=== PATIENT | female | born 1950 | race Hispanic/Latino ===

== ENCOUNTER 2016-08-24 16:11 | Emergency (ER) | payer MEDICARE ==
--- NOTE | 2016-08-24 16:28 | C.PDOC ---
History Of Present Illness 66-year-old female, presents to the emergency department with complaints of feeling "stressed out" at home; Patient states that her mother is "driving me crazy." Patient denies any complaints of depression. States she is feeling under appreciated. Patient denies SI/HI Time Seen by Provider: 08/24/16 16:25 Chief Complaint (Nursing): Psychiatric Evaluation History Per: Patient History/Exam Limitations: no limitations Past Medical History Reviewed: Historical Data, Nursing Documentation, Vital Signs Vital Signs: Last Vital Signs Temp 98.1 F 08/24/16 16:15 Pulse 85 08/24/16 16:15 Resp 18 08/24/16 16:15 BP 158/88 H 08/24/16 16:15 Pulse Ox 94 L 08/24/16 17:25 - Medical History PMH: Hypercholesterolemia Family History: States: No Known Family Hx - Social History Hx Alcohol Use: Yes Hx Substance Use: No - Immunization History Hx Tetanus Toxoid Vaccination: No Hx Influenza Vaccination: Yes Hx Pneumococcal Vaccination: No Review Of Systems Except As Marked, All Systems Reviewed And Found Negative. Constitutional: Negative for: Fever, Chills Respiratory: Negative for: Shortness of Breath Gastrointestinal: Negative for: Vomiting Musculoskeletal: Negative for: Back Pain Psych: Negative for: Depression Physical Exam - Physical Exam Appears: Non-toxic, No Acute Distress Skin: Warm, Dry, No Rash Head: Atraumatic Eye(s): bilateral: Normal Inspection Oral Mucosa: Moist Lips: Normal Appearing Neck: Normal ROM Cardiovascular: Rhythm Regular Respiratory: Normal Breath Sounds, No Accessory Muscle Use Extremity: Normal ROM ED Course And Treatment O2 Sat by Pulse Oximetry: 94 Medical Decision Making Medical Decision Making: pt given outpt f/u by crisis. Disposition - Disposition Disposition: HOME/ ROUTINE Disposition Time: 17:52 Condition: STABLE Additional Instructions: follow up as instructed by laundromat worker. Instructions: Anxiety (ED) - Clinical Impression Clinical Impression: Feeling stressed out - Scribe Statement The provider has reviewed the documentation as recorded by the Gibson Rivas All medical record entries made by the Scribe were at my direction and personally dictated by me. I have reviewed the chart and agree that the record accurately reflects my personal performance of the history, physical exam, medical decision making, and the department course for this patient. I have also personally directed, reviewed, and agree with the discharge instructions and disposition.
[2016-08-24 17:55] VITALS: BP 151/82; PULSE 76; RESP 16; TEMP 98.2
[2016-08-24 18:08] VITALS: O2SAT 94
== END 2016-08-24 17:55 | disposition home or self-care (01) ==
LOC: C.ER 16:11
DX: F43.9 Reaction to severe stress, unspecified (principal); E78.00 Pure hypercholesterolemia, unspecified

== ENCOUNTER 2016-11-15 10:12 | Day surgery (SDC) | payer MEDICARE, OTHER ==
[2016-11-04 08:23] VITALS: BMI 22.3
[2016-11-15] MEDS ORDERED: Propofol 10 mg/ml Inj (20 ML) ONE (13:04)
[2016-11-15] MEDS ORDERED: Midazolam 2 MG/2 ML VIAL ONE (13:04)
[2016-11-15] MEDS ORDERED: Lactated Ringer's 1,000 ML IV ONE (13:10)
--- NOTE | 2016-11-15 13:37 | PCM.SURG1 ---
Surgeon's Initial Post Op Note - Surgeon's Notes Surgeon: Dr. Nieves Machinery Engineer: None Type of Anesthesia: General LMA Anesthesia Administered By: Dr. Carcamo Pre-Operative Diagnosis: 66 yo Postmenopausal Thickened endometrium Operative Findings: Stenotic Os Post-Operative Diagnosis: Same as above Operation Performed: Fractional D and C Specimen/Specimens Removed: EMC,ECC Estimated Blood Loss: EBL {In ML}: 10 Blood Products Given: N/A Drains Used: No Drains Post-Op Condition: Good Date of Surgery/Procedure: 11/15/16 Time of Surgery/Procedure: 13:37
[2016-11-15 14:02] VITALS: O2SAT 100
[2016-11-15 15:37] VITALS: BP 129/62; PULSE 60; RESP 12; TEMP 98.2
--- NOTE | 2016-11-16 14:17 | OP ---
PROCEDURE DATE: 11/15/2016 PREOPERATIVE DIAGNOSIS: A 66-year-old female postmenopausal with thickened endometrium. POSTOPERATIVE DIAGNOSIS: A 66-year-old female postmenopausal with thickened endometrium. PROCEDURE: Fractional dilatation and curettage, attempted hysteroscopy, MyoSure. SURGEON: Jennifer Nieves MD ANESTHESIA ADMINISTERED BY: Sim Richter MD TYPE OF ANESTHESIA: General LMA. FINDINGS: Anteverted uterus noted to have a very stenotic os. Due to the stenotic os, the hysteroscopy was not able to be performed and it was proceeded to do a fractional D and C. COMPLICATIONS: None. ESTIMATED BLOOD LOSS: 10 mL. IV FLUID INTAKE: 300 mL. URINE OUTPUT: 0 mL. SPECIMENS: EMC and ECC. DESCRIPTION OF PROCEDURE: The patient was informed of the risk factors, benefits, and alternatives of the procedure. Risk factors included infection, bleeding, damage to the surrounding organs and tissues, complication from anesthesia, and possible . After informed consent was obtained, she was then taken to the operating room, prepped and draped in normal sterile fashion, placed in the dorsal lithotomy position. A weighted-speculum was placed into the vagina. The anterior lip of the cervix was grasped with single-tooth tenaculum. Uterus was gently sounded to approximately 10 cm. Upon complete uterine dilation, it was noted that she was extremely stenotic. A full dilation was not able to be proceeded. So then, just a fractional D and C was performed and double zero curetting was utilized for the endometrial lining. In that particular instance, EMC and ECC was performed and submitted to the pathology. Excellent hemostasis was noted. Upon completion, all instruments were removed from the vagina. Instrument and sponge counts were correct x2. The patient was then taken to recovery in stable condition and instructed to follow up in the office in approximately 2 weeks. Jennifer Nieves MD
== END 2016-11-15 17:15 | disposition home or self-care (01) ==
LOC: C.SDS 10:12
PROVIDERS: ATTEND Obstetrics & Gynecology
DX: N95.0 Postmenopausal bleeding (principal)
CPT/HCPCS: 58120; 88305; J1885; J2250; J2405; J2704; J3010; J7120

== ENCOUNTER 2017-10-21 13:16 | Emergency (ER) | payer MEDICARE ==
[2017-10-21 13:16] VITALS: BMI 22.3
[2017-10-21 13:35] VITALS: TEMP 98
[2017-10-21 14:46] LABS: SQUAMOUS EPITHIAL 1 /hpf (0-5); URINE BILIRUBIN NEGATIVE (NEGATIVE); URINE BLOOD NEGATIVE (NEGATIVE); URINE CLARITY Clear (Clear); URINE COLOR Yellow (YELLOW); URINE GLUCOSE (UA) NORMAL (Normal); URINE LEUKOCYTE ESTERASE NEG Leu/uL (Negative); URINE PROTEIN 1+ mg/dL (NEGATIVE); URINE UROBILINOGEN NORMAL mg/dL (0.2-1.0)
--- NOTE | 2017-10-21 14:46 | C.PDOC ---
History Of Present Illness 67yo female, presents to the emergency department with complaints of two week history of dysuria. Patient has not taken any medication to help relieve symptoms. She denies any fever, chills, back pain, nausea/vomiting, hematuria, or any other associated symptoms. no other complaints at this time. Time Seen by Provider: 10/21/17 13:40 Chief Complaint (Nursing): Female Genitourinary History Per: Patient History/Exam Limitations: no limitations Onset/Duration Of Symptoms: Days Current Symptoms Are (Timing): Still Present Severity: Moderate Past Medical History Reviewed: Historical Data, Nursing Documentation, Vital Signs Vital Signs: Last Vital Signs Temp 98.0 F 10/21/17 13:33 Pulse 77 10/21/17 15:07 Resp 16 10/21/17 15:07 BP 110/68 10/21/17 15:07 Pulse Ox 98 10/21/17 15:07 - Medical History PMH: Anxiety (NO MEDS), Hypercholesterolemia Denies: Diabetes, Hepatitis Family History: States: No Known Family Hx - Social History Hx Alcohol Use: Yes Hx Substance Use: No - Immunization History Hx Tetanus Toxoid Vaccination: No Hx Influenza Vaccination: Yes Hx Pneumococcal Vaccination: No Review Of Systems Constitutional: Negative for: Fever, Chills Respiratory: Negative for: Shortness of Breath Gastrointestinal: Negative for: Nausea, Vomiting, Abdominal Pain, Diarrhea Genitourinary: Positive for: Dysuria. Negative for: Frequency, Hematuria, Vaginal Discharge, Vaginal Bleeding Musculoskeletal: Negative for: Back Pain Skin: Negative for: Rash Physical Exam - Physical Exam Appears: Non-toxic, No Acute Distress Skin: Normal Color, Warm, Dry, No Rash Head: Atraumatic, Normacephalic Eye(s): bilateral: Normal Inspection, PERRL, EOMI Nose: Normal Oral Mucosa: Moist Lips: Normal Appearing Neck: Normal ROM Cardiovascular: Rhythm Regular, No Murmur Respiratory: Normal Breath Sounds, No Accessory Muscle Use Gastrointestinal/Abdominal: Soft, No Tenderness, No Guarding Back: No CVA Tenderness Extremity: Normal ROM, No Deformity Neurological/Psych: Oriented x3, Normal Speech ED Course And Treatment O2 Sat by Pulse Oximetry: 96 (RA ) Pulse Ox Interpretation: Normal Disposition Counseled Patient/Family Regarding: Studies Performed, Diagnosis, Need For Followup, Rx Given - Disposition Referrals: Fede Lujan MD [Staff Provider] - Disposition: HOME/ ROUTINE Disposition Time: 15:01 Condition: STABLE Additional Instructions: follow up with Dr. Lujan within 2 days call to make an appointment take medications as prescribed return to ER if symptoms worsens or progress Prescriptions: Phenazopyridine HCl [Pyridium] 200 mg PO TID PRN #6 tablet PRN Reason: Urinary Discomt Sulfamethoxazole/Trimethoprim [Bactrim DS 800 mg-160 mg] 1 tab PO BID #14 tab Instructions: Dysuria, Adult (DC) Forms: [employer] (Swedish), General Discharge Instructions - Clinical Impression Clinical Impression: Dysuria - Scribe Statement The provider has reviewed the documentation as recorded by the Scribe (Christian Murillo) All medical record entries made by the Scribe were at my direction and personally dictated by me. I have reviewed the chart and agree that the record accurately reflects my personal performance of the history, physical exam, medical decision making, and the department course for this patient. I have also personally directed, reviewed, and agree with the discharge instructions and disposition.
[2017-10-21] MEDS ORDERED: Tmp-Smz 800 mg-160 mg DS Tab PO STA (14:58)
[2017-10-21 15:08] VITALS: BP 110/68; PULSE 77; RESP 16
[2017-10-21] MEDS ORDERED: Tmp-Smz 800 mg-160 mg DS Tab ONE (15:08)
[2017-10-21 15:22] VITALS: O2SAT 96
== END 2017-10-21 15:07 | disposition home or self-care (01) ==
LOC: C.ER 13:16
DX: R30.0 Dysuria (principal)

== ENCOUNTER 2018-03-08 13:55 | Emergency (ER) | payer MEDICARE ==
[2018-03-08 13:55] VITALS: BMI 22.3
[2018-03-08 14:06] VITALS: BP 156/84; PULSE 77; RESP 20; TEMP 97.5; O2SAT 95
--- NOTE | 2018-03-08 14:19 | C.PDOC ---
History Of Present Illness 67 year old Female with PMHx of HLD and congenital foot deformities presents for right ankle pain. Patient slipped and fell while walking outside. Patient did not hit or head or lose consciousness. Since then patient's ankle pain has been worse. Patient has tried using Bengay with no relief. Patient cannot describe the pain, but rates it 8/10. Patient says it is too painful to put pressure onto her right ankle. Patient has not tried any medications for the pain. Chief Complaint (Nursing): Lower Extremity Problem/Injury History Per: Patient History/Exam Limitations: no limitations Onset/Duration Of Symptoms: Days, Persistent Current Symptoms Are (Timing): Worse Severity: Severe Pain Scale Rating Of: 8 Additional History Per: Patient - Ankle/Foot Description Of Injury: Fell Currently Unable To: Bear Weight (painful to bear weight) Alleviating Factor(s): denies: Ice Therapy, Elevation Past Medical History Vital Signs: Last Vital Signs Temp 97.5 F L 03/08/18 14:02 Pulse 77 03/08/18 14:02 Resp 20 03/08/18 14:02 BP 156/84 H 03/08/18 14:02 Pulse Ox 95 03/08/18 14:02 - Medical History PMH: Anxiety (NO MEDS), Hypercholesterolemia Denies: Diabetes, Hepatitis Other PMH: chronic feet deformities Surgical History: Other Surgeries: D+C Family History: States: Unknown Family Hx - Social History Hx Tobacco Use: No Hx Alcohol Use: No Hx Substance Use: No - Immunization History Hx Tetanus Toxoid Vaccination: No Hx Influenza Vaccination: Yes Hx Pneumococcal Vaccination: No Review Of Systems Cardiovascular: Negative for: Chest Pain Respiratory: Negative for: Shortness of Breath Musculoskeletal: Positive for: Other (right ankle pain) Skin: Negative for: Bruising Neurological: Negative for: Weakness, Numbness Physical Exam - Physical Exam Appears: Well, Non-toxic, No Acute Distress Skin: Normal Color, Warm, No Ecchymosis Cardiovascular: Rhythm Regular Respiratory: Normal Breath Sounds Extremity: Normal ROM, Tenderness (lateral aspect of ankle), Deformity (congenital feet deformity), Swelling (lateral medial malleolus edema which patient says is chronic) Extremity: Right: Painful To Bear Weight Neurological/Psych: Oriented x3 ED Course And Treatment O2 Sat by Pulse Oximetry: 95 - Other Rad right ankle xray X-Ray: Interpreted by Me, Viewed By Me Interpretation: no acute fractures Medical Decision Making Medical Decision Making: Impression: right ankle sprain Plan: xray shows no acute fractures Ibuprofen given Patient stable for discharge. supportive therapy- patient may take Ibuprofen and apply ice packs to area Disposition Counseled Patient/Family Regarding: Diagnosis - Disposition Disposition: HOME/ ROUTINE Disposition Time: 14:47 Condition: GOOD Additional Instructions: LAVELL NICOLE, thank you for letting us take care of you today. Your provider was Dakota Baird MD and you were treated for FALL/KNEE PAIN. The emergency medical care you received today was directed at your acute symptoms. Return to the Emergency Department if your symptoms worsen, do not improve, or if you have any other problems. Patient to take Ibuprofen as needed for pain. Please contact your doctor or call one of the physicians/clinics you have been referred to that are listed on the Patient Visit Information form that is included in your discharge packet. Bring any paperwork you were given at discharge with you along with any medications you are taking to your follow up visit. Our treatment cannot replace ongoing medical care by a primary care provider outside of the emergency department. Thank you for allowing the [facility] team to be part of your care today. Instructions: Ankle Sprain (DC) Forms: [employer] (Georgian) - Clinical Impression Clinical Impression: Right ankle sprain
--- NOTE | 2018-03-08 14:55 | RAD ---
Date of service: 03/08/2018 PROCEDURE: Right Ankle Radiographs. HISTORY: s/p fall, pain COMPARISON: None available. FINDINGS: BONES: Normal. No fracture. JOINTS: Normal. No osteoarthritis. Ankle mortise maintained. Talar dome intact SOFT TISSUES: Normal. OTHER FINDINGS: None. IMPRESSION: Normal right ankle radiographs.
== END 2018-03-08 15:00 | disposition home or self-care (01) ==
LOC: C.ER 13:55
DX: S93.401A Sprain of unspecified ligament of right ankle, initial encounter (principal); W01.0XXA Fall on same level from slipping, tripping and stumbling without subsequent striking against object, initial encounter; Y93.01 Activity, walking, marching and hiking